=== PATIENT | male | born 1990 | race Caucasian/White ===

== ENCOUNTER 2019-10-31 19:34 | Inpatient (IN) | payer BC ==
[~2019-10-31] VITALS: Ht 167.6 cm; Wt 73.9 kg
--- NOTE | 2019-10-31 19:45 | NUR ---
ADMISSION NOTES: RECEIVED REPORT FROM DAY TONE PERSAUD. PT DIRECT ADMIT FROM [facility], BROUGHT TO THE UNIT VIA AMBULANCE. PT A/O X4, STATED HE'S PAIN SUBSIDED AND A LOT BETTER, 2.5/10. RECEIVED DILAUDID IV AT 1842. ACCORDING TO PT, HE WENT TO ER [place] D/T EXCRUCIATING RIGHT HIP PAIN 10/10, WHICH IS WORST WHEN SITTING. THIS ALL STARTED AT 0400AM. IN [place] HE STARTED DEVELOPING FEVER. LABS FOLLOWS: WBC 13.4, LACTIC ACID 2.6, REFLEX RESULT OF 2.5 AFTER FLUID CHALLENGE. MRI RESULT IS RIGHT HIP CYSTIC LESION. ORIENTED PT TO UNIT POLICY AND HOURLY ROUNDING, USE OF CALL LIGHT SYSTEM, AND VISITING HOURS. MET WITH PT'S FRIENDS AT BED SIDE. PT OKAY TO DISCUSSED INFORMATION IN FRONT OF HIS FRIENDS/ROOMMATES. IV ACCESS ON RIGHT WRIST G 20 PATENT AND FLUSHING WELL, ON HL. SKIN ASSESSMENT PERFORMED, NO SKIN ISSUES NOTED. INVENTORY OF BELONGINGS COMPLETED BY SIOBHAN MITCHELL. VS TAKEN AND RECORDED. SAFETY PRECAUTIONS FOR FALL INITIATED, CALL LIGHT IN REACH, WILL CONTINUE MONITORING PT. MEDS GIVEN IN ER [place] FOLLOWS: NS 2L DILAUDID 5MG IV AT 1430 VANCO 1.25GM IV AT 1217 ROCEPHIN 2GM IV AT 1309 TYLENOL IV GIVEN THEN 1000MG PO AT 1400
[2019-10-31 20:00] VITALS: BP_SYST 121; BP_SYST 129; BP_DIAS 55; BP_DIAS 79
--- NOTE | 2019-10-31 20:20 | NUR ---
RN NOTES: HOSPITALIST/DR BUSTILLOS CAME TO SEE THE PT, PERFORMED H&P, RN PRESENT. RELAYED TO MD REGARDING RESULT OF VS, ELEVATED TEMP 101.8 THEN HR 117-125, PAIN C/O 2.5/10, SHOWED ALL PAPER WORKS FROM [place] INCLUDING LAB RESULT, XRAY AND MRI, MEDS RECEIVED.
[2019-10-31] MEDS ORDERED: IV 1/2NS 1000 ML 1,000 ML IV PRN (20:30)
--- NOTE | 2019-10-31 20:30 | NUR ---
RN NOTES: DR BUSTILLOS CURRENTLY IN THE UNIT, PER VERBAL ORDER TO START PT ON 1/2 NS AT 125ML/HR, REGULAR DIET, CONSULT WITH DR ALEJANDRO IN AM, ORDER READ BACK VERIFIED AND CARRIED OUT. PER MD HE WILL PUT THE ADMIT ORDERS.
[2019-10-31] MEDS ORDERED: Z GUARD REMEDY 2 OZ OINT TP PRN (21:30)
[2019-10-31] MEDS ORDERED: MORPHINE SULFATE INJ 2 MG/ML DISP.SYRIN IV PRN (21:30)
[2019-10-31] MEDS ORDERED: MAGNESIUM HYDROXIDE 30 ML UDC PO PRN (21:30)
[2019-10-31] MEDS ORDERED: MAG HYDROX/AL HYDROX/SIMETH 30 ML UDC PO PRN (21:30)
--- NOTE | 2019-10-31 21:39 | NUR ---
RN NOTES: CONTACTED DANICA/[phone] , FOR SOME REASON NO DOCUMENTATION PAPER RECEIVED INDICATING THAT PT RECEIVED IV ROCEPHIN, BUT PER REPORT FROM DAY RN KYRIE , ACCORDING TO JB (RN FROM [facility]), PT RECEIVED ROCEPHIN 2GM AT 1309. SPOKED WITH [employer] SUPERVISOR FROM [facility], SHE VERIFIED THAT PT DID RECEIVED THE IV ATB ROCEPHIN 2GM AT 1309 TODAY, WHEN ASKED IF THERE'S A WAY THE PAPERS CAN BE FAXED TO US, PER [employer] SUPERVISOR STATED THEY'RE BUSTY AND CANT DO THAT RIGHT NOW, BUT SHE WILL GIVE US A CALL SOMETIME TONIGHT WHEN THEYRE NOT BUSY. CONTACTED PHARM PAVING FOREMAN, SPOKE WITH ANA LAURA, RELAYED THE SITUATION, PER MAY "ITS OKAY, AND WILL GIVE THE NEXT ROCEPHIN DOSE IN AM.
[2019-10-31] MEDS ORDERED: VANCOMYCIN 1 GM VIAL ONE (22:11)
[2019-10-31 22:21] VITALS: BP 123/87
--- NOTE | 2019-10-31 22:30 | NUR ---
RN NOTES: OFFERED MORPHINE FOR PAIN MANAGEMENT, ACCORDING TO PT, HE FELT A LOT BETTER NOW, HE'S JUST TIRED AND WANTING TO SLEEP, STATED HE WILL CALL WHEN HE NEEDS THE MEDICATION. HIS CONCERN RIGHT NOW IS THE HEAD ACHE. OFFERED TYLENOL.
[2019-10-31] MEDS: ACETAMINOPHEN 325 MG TABLET PO PRN (22:34)
--- NOTE | 2019-10-31 22:34 | NUR ---
PRN TYLENOL: PT C/O HEAD ACHE REQUESTING FOR TYLENOL, PRN TYLENOL ADMINISTERED AT THIS TIME.
[2019-10-31] MEDS ORDERED: VANCOMYCIN 1 GM in IV D5W 250ml IV ONE (23:00)
[2019-11-01 04:10] VITALS: BP 130/74
--- NOTE | 2019-11-01 04:28 | NUR ---
PRN MORPHINE:l PT WOKE UP C/O HEAD ACHE, LOWER BACK PAIN WHICH CONTRIBUTES TO RIGHT HIP PAIN 10/10, PT RESTLESS, CRYING, PRN MORPHINE 1MG IVP ADMINISTERED TO PT AT THIS TIME. VS TAKEN AND RECORDED. NOTED TEMP OF 102.0. COOLING MEASURES PROVIDED, ICE PACK TO UNDERARMS, ICE PACK TO RIGHT HIP AND HEAD AREA, THEN LOWER BACK. WILL REASSESS IN 30MINS IF PAIN MEDICATIONS AND ICE PACK HELP MANAGING PAIN.
[2019-11-01 05:20] VITALS: BP 119/79
--- NOTE | 2019-11-01 05:21 | NUR ---
RN NOTES: CONTACTED MD REGARDING PATIENT'S PAIN REASSESSMENT FROM 08/08, NOW 06/08, PER HOSPITALIST OKAY TO GIVE ANOTHER 1MG MORPHINE IVP NOW. ALSO TELEPHONE ORDER FROM ACCOUNT AUDITOR HOSPITALIST TO CHANGE MORPHINE TO 2MG IVP Q3HRS PRN FOR SEVER PAIN 8-10. ORDERS READ BACK VERIFIED AND CARRIED OUT.
[2019-11-01] MEDS ORDERED: MORPHINE SULFATE INJ 2 MG/ML DISP.SYRIN IV ONE (05:30)
[2019-11-01] MEDS: IV NS 0.9% 1,000 ML IV PRN (05:36)
[2019-11-01] MEDS: ACETAMINOPHEN 325 MG TABLET PO PRN ×4 (05:36→21:45)
--- NOTE | 2019-11-01 05:37 | NUR ---
PRN TYLENOL: INFORMED PT REGARDING MD'S ORDER FOR ADDITIONAL MORPHINE 1MG, TO HELP WITH PT'S C/O PAIN, PER PATIENT HE DOESN'T FEEL THE NEED FOR MORPHINE, STATED HE'S PAIN NOW IS A LOT BETTER, BUT HEAD ACHE STILL PRESENT, CLAIMED PUTTING ICE PACK ON HIS HEAD HELPED SO MUCH, NOW REQUESTING FOR TYLENOL ONLY, PRN TYLENOL 650MG TAB PO ADMINISTERED TO PT AT THIS TIME. LATEST TEMP 102.6. CONTINUE WITH COOLING MEASURES.
--- NOTE | 2019-11-01 06:57 | NUR ---
EOSS: PT SLEEPING, REMAINS ON RA, DENIES ANY SOB. OFFERED PAIN MEDICATION, REFUSED, STATED PAIN IS TOLERABLE, 12/09. IV ACCESS REMAINS PATENT AND FLUSHING WELL, INFUSING WITH IVF ORDERED, NO S/S OF IV INFILTRATION NOTED. PRN TYLENOL ADMINISTERED FOR C/O HEAD ACHE AND FEVER-TMAX 102.6, MD AWARE. PRN MORPHINE ADMINISTERED FOR C/O 10/10 HEAD ACHE, LOWER BACK AND RIGHT HIP PAIN. ALL DUE MEDS ADMINISTERED. MRSA COLLECTED AND SENT TO LAB LAST NIGHT. VS REMAINS STABLE. NEEDS ATTENDED. AWAITING ORTHO CONSULT/DR ALEJANDRO. SAFETY PRECAUTIONS FOR FALL REMAINS ENGAGED, CALL LIGHT IN REACH, WILL ENDORSE TO DAY RN FOR CONTINUITY OF CARE.
[2019-11-01 07:17] LABS: BASOPHILS % (AUTO) 0.2 % (0.0-2.0); EOSINOPHILS % (AUTO) 0.1 % (0.0-6.0); HEMATOCRIT 41 % (39-51); LYMPHOCYTES # (AUTO) 0.9 /CMM (0.8-4.8); LYMPHOCYTES % (AUTO) 6.3 % (20.0-44.0); MEAN CORPUSCULAR HGB CONC 34 g/dl (31.0-36.0); MEAN CORPUSCULAR VOLUME 91 fL (80-96); MONOCYTES # (AUTO) 0.9 /CMM (0.1-1.30); MONOCYTES % (AUTO) 5.8 % (2.0-12.0); NEUTROPHILS # (AUTO) 12.9 /CMM (1.8-8.9); NEUTROPHILS % (AUTO) 87.6 % (43.0-81.0); PLATELET COUNT (AUTO) 197 /CMM (150-450); RED BLOOD CELL COUNT(AUTO) 4.53 MIL/uL (4.5-6.0); WHITE BLOOD COUNT (AUTO) 14.7 K/uL (4.3-11.0)
[2019-11-01] MEDS: MORPHINE SULFATE INJ 2 MG/ML DISP.SYRIN IV PRN ×4 (07:44→22:49)
--- NOTE | 2019-11-01 07:50 | NUR ---
M/S RN NOTES PATIENT AWAKE IN BED, ALERT AND ORIENTED X4, NO RESPIRATORY DISTRESS, C/O HEADACHE 07/09, ASKED FOR MORPHINE, GIVEN ORDERED. WILL CONTINUE TO ASSESS. PATIENT'S SKIN WARM TO TOUCH. IV NS INFUSING AT 75ML/HR ON THE RT WRIST #20G, INTACT AND PATENT. PATIENT'S NEEDS ATTENDED, BED ON LOWEST LOCKED POSITION, CALL LIGHT WITHIN REACH. WILL CONTINUE TO MONITOR.
[2019-11-01 08:08] LABS: ALBUMIN 3.2 g/dL (3.4-5.0); BILIRUBIN,TOTAL 0.9 mg/dL (0.2-1.0); CALCIUM, SERUM 8.2 mg/dL (8.5-10.1); CREATININE 1.1 mg/dL (0.6-1.3); MAGNESIUM 1.6 mg/dL (1.8-2.4); PHOSPHORUS 1.9 mg/dL (2.5-4.9); POTASSIUM 3.5 mmol/L (3.5-5.1); TOTAL PROTEIN, SERUM 6.4 g/dL (6.4-8.2)
[2019-11-01 08:19] VITALS: BP 117/69
[2019-11-01 08:33] LABS: APPEARANCE,URINE CLEAR (CLEAR); BILIRUBIN,URINE NEGATIVE (NEGATIVE); BLOOD, URINE NEGATIVE Ery/uL (NEGATIVE); COLOR,URINE YELLOW (YELLOW); KETONES,URINE NEGATIVE (NEGATIVE); LEUKOCYTE ESTERASE ,URINE NEGATIVE (NEGATIVE); NITRITE, URINE NEGATIVE (NEGATIVE); PROTEIN,URINE NEGATIVE (NEGATIVE); UGLUCOSE NEGATIVE (NEGATIVE); UROBILINOGEN,URINE 0.2 EU/dL (0.2)
[2019-11-01] MEDS ORDERED: FEE PK DOSING 1 MIN EA MC ONE (08:53)
[2019-11-01] MEDS: VANCOMYCIN 1 GM in IV D5W 250 ML IV SCH ×2 (10:16→17:49)
[2019-11-01] MEDS: Magnesium 1GM/D5W 100ML PREMIX 100 ML IV SCH ×2 (10:52→12:01)
--- NOTE | 2019-11-01 11:30 | NUR ---
M/S RN NOTES SPOKE TO LARS SAWYER. PATIENT WOULD NEED TO BE TRANSFERRED FOR HLOC REGARDING FURTHER TESTS, PATIENT IS AWARE.
[2019-11-01] MEDS: ONDANSETRON HCL/PF 4 MG/2 ML VIAL IVP PRN ×3 (11:41→22:50)
[2019-11-01] MEDS: Sodium Phosphate 15 MMOL in IV D5W 250 ML IV ONE ×2 (12:21→13:45)
[2019-11-01] MEDS: CEFTRIAXONE 1 G in IV D5W 50 ML IV SCH (13:09)
--- NOTE | 2019-11-01 16:10 | NUR ---
M/S RN NOTES PATIENT WITH 101.3 TEMP, GAVE TYLENOL 650MG ORDERED AND ICE BAGS FOR COOLING MEASURES. WILL CONTINUE TO MONITOR.
[2019-11-01 17:09] VITALS: BP 116/74
--- NOTE | 2019-11-01 19:15 | NUR ---
M/S RN NOTES PATIENT RESTING IN BED, FAMILY AT BEDSIDE. PATIENT IN NO RESPIRATORY DISTRESS, PAIN TOLERABLE AT THIS TIME. PATIENT'S NEEDS ATTENDED. BED ON LOWEST LOCKED POSITION, CALL LIGHT WITHIN REACH. WILL ENDORSE TO ONCOMING NURSE.
--- NOTE | 2019-11-01 19:35 | NUR ---
RN OPENING NOTES RECEIVED PATIENT IN BED, AWAKE, FRIEND AT BED SIDE. PATIENT IS A/O X 4. NO SIGNS OF RESPIRATORY DISTRESS, DENIES SHORTNESS OF BREATH. PATIENT ONLY COMPLAINS OF HEADACHE, OFFERED TO ADMINISTER MORPHINE AT THIS TIME, PATIENT DENIES THE MORPHINE AT THIS TIME. IV SITE INTACT, PATENT, NO SIGNS OF INFECTION/INFILTRATION. SAFETY PRECAUTIONS IMPLEMENTED; CALL LIGHT WITHIN REACH, BED LOWEST POSITION, BED LOCKED, BILATERAL UPPER SIDE RAILS UP. WILL CONTINUE TO MONITOR.
[2019-11-01 20:00] VITALS: BP 125/82
--- NOTE | 2019-11-01 21:48 | NUR ---
RN NOTES PATIENT WITH TEMP 100.9 F. TYLENOL GIVEN 650 MG GIVEN. WILL CONTINUE TO MONITOR.
[2019-11-02] MEDS: VANCOMYCIN 1 GM in IV D5W 250 ML IV SCH ×2 (00:57→08:00)
--- NOTE | 2019-11-02 06:45 | NUR ---
RN CLOSING NOTES PATIENT IS SLEEPING, EASILY AWAKENED. REMAINS ON RA, TOLERATING WELL, NO SIGNS OF RESPIRATORY DISTRESS, DENIES SOB. PATIENT AFEBRILE. ALL DUE MEDS AND PRN'S ADMINISTERED ORDERED. IV SITE INTACT, PATENT, NO SIGNS OF INFECTION/INFILTRATION, IVF INFUSING AT 75 ML/HR, STOPPED ONCE IN AWHILE DUE TO PATIENT AMBULATING TO RESTROOM. SAFETY PRECAUTIONS IMPLEMENTED; CALL LIGHT WITHIN REACH, BED LOWEST POSITION, BED LOCKED, BILATERAL UPPER SIDE RAILS UP. WILL ENDORSE TO DAY SHIFT NURSE FOR CONTINUITY OF CARE.
--- NOTE | 2019-11-02 07:15 | NUR ---
MS RN OPENING NOTES RECEIVED PT IN BED, AWAKE, A/O X4. PT TOLERATING RA, WITH NO ACUTE RESPIRATORY DISTRESS NOTED. PT DENIES ANY PAIN OR DISCOMFORT AT THIS TIME. ALSO DENIES ANY QUESTIONS OR CONCERNS. IVF NS 75ML/HR TO R WRIST G20, INTACT AND FLUID INFUSING WELL. PT KEPT COMFORTABLE. CALL LIGHT KEPT WITHIN REACH. PT'S BED IN LOWEST, LOCKED POSITION WITH SR X3. WILL CONTINUE PLAN OF CARE.
[2019-11-02] MEDS: ACETAMINOPHEN 325 MG TABLET PO PRN ×2 (07:23→16:04)
[2019-11-02] MEDS: ONDANSETRON HCL/PF 4 MG/2 ML VIAL IVP PRN ×2 (07:38→14:19)
[2019-11-02 07:57] LABS: BASOPHILS % (AUTO) 0.3 % (0.0-2.0); EOSINOPHILS % (AUTO) 0.1 % (0.0-6.0); HEMATOCRIT 45 % (39-51); HEMOGLOBIN 15.5 g/dL (13.5-17.5); LYMPHOCYTES # (AUTO) 1.1 /CMM (0.8-4.8); MEAN CORPUSCULAR HGB CONC 34 g/dl (31.0-36.0); MEAN CORPUSCULAR VOLUME 91 fL (80-96); MONOCYTES # (AUTO) 0.9 /CMM (0.1-1.30); MONOCYTES % (AUTO) 9.4 % (2.0-12.0); NEUTROPHILS # (AUTO) 7.9 /CMM (1.8-8.9); NEUTROPHILS % (AUTO) 79.2 % (43.0-81.0); PLATELET COUNT (AUTO) 213 /CMM (150-450); RED BLOOD CELL COUNT(AUTO) 4.98 MIL/uL (4.5-6.0); WHITE BLOOD COUNT (AUTO) 9.9 K/uL (4.3-11.0)
[2019-11-02] MEDS: MORPHINE SULFATE INJ 2 MG/ML DISP.SYRIN IV PRN ×2 (07:59→14:35)
[2019-11-02 08:00] VITALS: BP 119/78
[2019-11-02 08:14] LABS: CALCIUM, SERUM 8.8 mg/dL (8.5-10.1); CREATININE 0.8 mg/dL (0.6-1.3); MAGNESIUM 2.3 mg/dL (1.8-2.4); POTASSIUM 3.7 mmol/L (3.5-5.1)
[2019-11-02 10:17] LABS: CALCIUM, SERUM 8.9 mg/dL (8.5-10.1); PHOSPHORUS 2.9 mg/dL (2.5-4.9)
[2019-11-02] MEDS: IV NS 0.9% 1,000 ML IV PRN (10:31)
[2019-11-02] MEDS: CEFTRIAXONE 1 G in IV D5W 50 ML IV SCH (12:04)
[2019-11-02 16:00] VITALS: BP 132/71
[2019-11-02] MEDS ORDERED: VANCOMYCIN 1.25 GM in IV D5W 250 ML IV SCH (17:00)
--- NOTE | 2019-11-02 17:52 | NUR ---
MS COLOR DEPOSITING MACHINE TENDER NOTES PT A/O X4 PREFERS TO GO AMA, PT SIGNED FORM, HOSPITALIST/GA AWARE. PT TOLERATING RA, WITH NO ACUTE RESPIRATORY DISTRESS NOTED. PT DENIES ANY PAIN OR DISCOMFORT AT THE TIME OF DISCHARGE. PIV TO LFA G20, REMOVED AND APPLIED PRESSURE DRESSING. ALL NEEDS AND CARE ATTENDED. DISCHARGE PAPERS AND INVENTORY LIST REVIEWED AND SIGNED BY PT. DISC FROM [place] RETURNED TO PT AND PER PT REQUEST. PT ACCOMPANIED BY FRIEND. PT'S VITALS RECORDED. PT ESCORTED TO THE LOBBY VIA WHEELCHAIR BY SIOBHAN. PT LEFT THE UNIT AT 1755. ARJUN/LOBO MADE AWARE OF AMA WELL.
== END 2019-11-02 17:55 | disposition left against medical advice (07) | DRG 549 ==
LOC: MEDSG2 19:34
PROVIDERS: ADMIT Internal Medicine; ATTEND Family Medicine
DX: M00.9 Pyogenic arthritis, unspecified (principal); E44.1 Mild protein-calorie malnutrition; E87.1 Hypo-osmolality and hyponatremia; E88.09 Other disorders of plasma-protein metabolism, not elsewhere classified; E83.51 Hypocalcemia; E83.42 Hypomagnesemia; E86.1 Hypovolemia; Z82.49 Family history of ischemic heart disease and other diseases of the circulatory system; E83.39 Other disorders of phosphorus metabolism; D72.829 Elevated white blood cell count, unspecified; R73.9 Hyperglycemia, unspecified; Z68.26 Body mass index [BMI] 26.0-26.9, adult; M25.551 Pain in right hip
CPT/HCPCS: 36415; 80048-TC; 80053-TC; 80202-TC; 81000-TC; 82310-TC; 82330; 83735-TC; 84100-TC; 85025-TC; 85652-TC; 87040-TC; 87081-TC; A9563; G0378; J0696; J2270; J2405; J3370; J3475; J3490; J7030; J7060